=== PATIENT | male | born 1975 | race Caucasian/White ===

== ENCOUNTER 2023-05-14 05:35 | Day surgery (SDC) | payer BC, OTHER ==
[2023-05-09 13:54] VITALS: BMI 36.1
[2023-05-14] MEDS ORDERED: PROPOFOL 20 ML ONE ×2 (07:18→07:33)
[2023-05-14] MEDS ORDERED: MIDAZOLAM HCL 2 MG/2 ML SINGLE DOSE VIAL ONE (07:18)
[2023-05-14] MEDS ORDERED: BACITRACIN ZINC 15 GM TUBE TOPICAL OINTMENT ONE (07:27)
[2023-05-14] MEDS ORDERED: LIDOCAINE HCL 1%, 10 MG/ML (20ML VIAL) ONE (07:27)
[2023-05-14] MEDS ORDERED: ceFAZolin SODIUM 1 GM VIAL IVPB ONE (07:46)
[2023-05-14] MEDS ORDERED: ACETAMINOPHEN INJECTION 100 ML IVPB ONE (07:53)
[2023-05-14] MEDS ORDERED: GLYCOPYRROLATE 0.2 MG/1 ML VIAL ONE (08:07)
[2023-05-14] MEDS ORDERED: BUPIVACAINE HCL/PF 0.25% (2.5MG/ML) 10 ML VIAL IJ ONE (08:11)
[2023-05-14] MEDS ORDERED: oxyCODONE HCL 5 MG TABLET PO PRN ×2 (08:17→08:29)
[2023-05-14] MEDS ORDERED: LACTATED RINGERS SOLUTION 1,000 ML IV SCH (08:30)
[2023-05-14] MEDS ORDERED: DEXTROSE 5%-0.45% SALINE 1,000 ML IV SCH (08:30)
[2023-05-14 10:05] VITALS: PULSE 60; TEMP 97.1
[2023-05-14 10:44] VITALS: BP 133/92; RESP 20
== END 2023-05-14 10:53 | disposition home or self-care (01) ==
LOC: JASU-SURG 05:35
PROVIDERS: ATTEND Urology
PROC: 0VNS0ZZ Release Penis, Open Approach (ICD-10-PCS; 2023-05-14)
PROC: 0VTTXZZ Resection of Prepuce, External Approach (ICD-10-PCS; principal; 2023-05-14 07:30)
DX: N47.1 Phimosis (principal)
CPT/HCPCS: 82962; 88304-TC; 94760

== ENCOUNTER 2023-09-04 03:52 | Day surgery (SDC) | payer BC, OTHER ==
[2023-08-28 11:26] VITALS: BMI 36.1
[2023-09-04] MEDS ORDERED: ceFAZolin SODIUM 1 GM VIAL IVPB ONE (07:40)
[2023-09-04] MEDS ORDERED: BACITRACIN ZINC 15 GM TUBE TOPICAL OINTMENT ONE (07:45)
[2023-09-04] MEDS ORDERED: LIDOCAINE HCL 1%, 10 MG/ML (20ML VIAL) INF ONE (07:46)
[2023-09-04] MEDS ORDERED: BACITRACIN ZINC 15 GM TUBE TOPICAL OINTMENT TP ONE (08:03)
[2023-09-04] MEDS ORDERED: ELECTROLYTE-148 SOLN 1,000 ML IV SCH (08:15)
[2023-09-04] MEDS ORDERED: oxyCODONE HCL 5 MG TABLET PO PRN ×2 (08:20)
[2023-09-04] MEDS ORDERED: ACETAMINOPHEN 1000 MG/100 ML BAG IVPB ONE (08:21)
[2023-09-04] MEDS ORDERED: LACTATED RINGERS SOLUTION 1,000 ML IV SCH (08:30)
[2023-09-04 11:25] VITALS: BP 132/87; RESP 20; TEMP 98.2
[2023-09-04 11:27] VITALS: PULSE 67
== END 2023-09-04 12:48 | disposition home or self-care (01) ==
LOC: JASU-SURG 03:52
PROVIDERS: ATTEND Urology
PROC: 0VTTXZZ Resection of Prepuce, External Approach (ICD-10-PCS; principal; 2023-09-04 07:30)
DX: N47.1 Phimosis (principal)
CPT/HCPCS: 82962; 94760